=== PATIENT | female | born 1990 | race Caucasian/White ===

== ENCOUNTER 2021-12-24 22:21 | Emergency (ER) | payer SELFPAY ==
[~2021-12-24] VITALS: Ht 165.1 cm; Wt 84.6 kg
[2021-12-24 22:49] VITALS: BP 138/50
[2021-12-24] MEDS ORDERED: SODIUM CHLORIDE 0.9% 1,000 ML IV ONE (23:00)
[2021-12-24] MEDS ORDERED: ONDANSETRON HCL 4MG/2ML INJ IV ONE (23:00)
[2021-12-24] MEDS ORDERED: FAMOTIDINE 20MG/2ML VIAL IV ONE (23:00)
[2021-12-24] MEDS ORDERED: MAGNESIUM/ALUMINUM HYDROXIDE/SIMETHICONE 30ML UDC PO ONE (23:00)
[2021-12-24 23:34] LABS: CLARITY URINE CLOUDY (CLEAR); COLOR URINE YELLOW (YELLOW); KETONES URINE 3+ (NEGATIVE); LEUKOCYTE ESTERASE URINE NEGATIVE (NEGATIVE); NITRITE URINE NEGATIVE (NEGATIVE); OCCULT BLOOD URINE NEGATIVE (NEGATIVE); PH URINE 7.5 (4.5-8.0); PROTEIN URINE TRACE (NEGATIVE)
[2021-12-24 23:41] LABS: BASOPHILS % 0.5 % (0.0-2.0); EOSINOPHILS % 0.2 % (0.0-5.0); HEMATOCRIT. 40.4 % (36.0-48.0); HEMOGLOBIN. 13.5 g/dL (12.0-16.0); LYMPHOCYTES % 9.3 % (20.0-50.0); MEAN CORPUSCULAR HEMOGLOBIN 27.9 pg (28.0-32.0); MEAN CORPUSCULAR VOLUME 83.3 fL (81.0-99.0); MEAN PLATELET VOLUME 8.2 fl (7.4-10.4); MONOCYTES % 5.4 % (2.0-8.0); NEUTROPHILS % 84.6 % (40.0-76.0); PLATELET 405 x1000/uL (130-400); RED BLOOD CELL COUNT 4.85 mill/uL (4.2-5.4); RED CELL DISTRIBUTION WIDTH 13.9 % (11.6-14.6)
[2021-12-24 23:50] LABS: CHLORIDE 103 mEq/L (98-107)
[2021-12-25] MEDS ORDERED: KETOROLAC 30MG/ML VIAL IV SCH (00:07)
[2021-12-25] MEDS ORDERED: ONDA4TAB5 PO (02:32)
[2021-12-25] MEDS ORDERED: TRAM50TA3 PO (02:32)
== END 2021-12-25 02:52 | disposition home or self-care (01) ==
LOC: ER 22:21
DX: K80.20 Calculus of gallbladder without cholecystitis without obstruction (principal); K29.00 Acute gastritis without bleeding; R74.02 Elevation of levels of lactic acid dehydrogenase [LDH]; L30.9 Dermatitis, unspecified
CPT/HCPCS: 36415; 76705; 80053; 81003; 81025; 83690; 85025; 96361; 96374; 96375; 99284; J1885; J2405; J3490; J7030